=== PATIENT | female | born 1950 | race Caucasian/White ===

== ENCOUNTER 2024-06-24 06:07 | Day surgery (SDC) | payer MEDICARE, OTHER ==
[~2024-06-24] VITALS: Ht 170.2 cm; Wt 103.2 kg
[2024-06-24] VITALS (13 sets, daily range): BP systolic 127–179; BP diastolic 57–86; PULSE 59–71; RESP 13–18; TEMP 97.8; O2SAT 92–96
[2024-06-24] MEDS ORDERED: ceFAZolin 1000mg inj ONE ×3 (06:17→06:38)
[2024-06-24] MEDS ORDERED: midazolam 1 mg/ML 2ml injection ONE ×2 (06:17→08:17)
[2024-06-24] MEDS ORDERED: fentaNYL/PF 50MCG/1 ML 2ML syringe ONE (06:17)
[2024-06-24] MEDS ORDERED: LIDOcaine 1% W/epiNEPHrine 1:100,000 20ml vial ONE ×2 (06:17→07:34)
[2024-06-24] MEDS ORDERED: LETR2.5T7 PO (06:43)
[2024-06-24] MEDS ORDERED: VENL37.589 PO (06:43)
[2024-06-24] MEDS ORDERED: CLON-368 PO (06:43)
[2024-06-24] MEDS ORDERED: CELE-148 PO (06:43)
[2024-06-24] MEDS ORDERED: ALBU18HF2 INH (06:43)
[2024-06-24] MEDS ORDERED: MV-M1TAB19 PO (06:43)
[2024-06-24] MEDS ORDERED: TRIA1TAB3 PO (06:43)
[2024-06-24] MEDS ORDERED: VALA100031 PO (06:43)
[2024-06-24] MEDS ORDERED: clindamycin 600mg/D5W 50ml 0 ML IV ONE (06:47)
[2024-06-24] MEDS ORDERED: vancomycin 1,000mg inj ONE (06:48)
[2024-06-24 07:08] LABS: ALBUMIN 3.8 G/DL (3.4-5.0); ANION GAP 10 (8-16); BLOOD UREA NITROGEN 10 MG/DL (7-18); BUN/CREATININE RATIO 10.1 (10.0-20.0); CHLORIDE 104 MMOL/L (99-107); CREATININE 0.99 MG/DL (0.40-0.90); GLUCOSE 104 MG/DL (70-104); POTASSIUM 3.4 MMOL/L (3.5-5.1); SODIUM 141 MMOL/L (135-145); TOTAL CARBON DIOXIDE 27.3 MMOL/L (24-32); eGFR 55 ML/MIN
[2024-06-24 07:17] LABS: BASOPHILS # (AUTO) 0.1 X10'3 (0-0.2); EOSINOPHILS # (AUTO) 0.5 X10'3 (0-0.9); MONOCYTES # (AUTO) 0.7 X10'3 (0-0.9)
[2024-06-24 07:19] LABS: EOSINOPHILS % (AUTO) 5.3 % (0-6); HEMOGLOBIN 13.9 g/dl (12.0-16.0); LYMPHOCYTES % (AUTO) 23.4 % (21-51); MEAN CORPUSCULAR HEMOGLOBIN 29.7 PG (27.0-31.0); MEAN CORPUSCULAR HGB CONC 33.9 g/dL (33.0-36.5); MEAN CORPUSCULAR VOLUME 87.5 FL (78-98); MEAN PLATELET VOLUME 10.1 FL (7.4-10.4); MONOCYTES % (AUTO) 8.3 % (2-12); NEUTROPHILS # (AUTO) 5.4 X10'3 (1.8-7.7); PLATELET COUNT 212 X10'3 (140-440); RED BLOOD COUNT 4.69 X10'6 (4.20-5.60); RED CELL DISTRIBUTION WIDTH 15.1 % (11.5-14.5); WHITE BLOOD COUNT 8.7 X10'3 (4.5-11.0)
[2024-06-24] MEDS: clindamycin-Cleocin 900mg/D5W 50 ML IV ONE (07:20)
[2024-06-24] MEDS ORDERED: diphenhydrAMINE 50 mg/ml inj ONE (07:34)
[2024-06-24] MEDS ORDERED: HYDROcodone/acetaminophen 10/325mg tab PO PRN (09:10)
[2024-06-24] MEDS ORDERED: HYDROcodone/acetaminophen 5mg/325mg tablet PO PRN (09:10)
[2024-06-24] MEDS: potassium Cl 20 mEq SR tablet PO STA (10:24)
[2024-06-24] MEDS: normal saline 1000ml 1,000 ML IV ONE (10:25)
[2024-06-24] MEDS ORDERED: CLIN300C54 PO (10:48)
[2024-06-24] MEDS: vancomycin/NS 1 GM ADD-VANTAGE 250 ML X 1 DOSE IV ONE (10:59)
== END 2024-06-24 13:55 | disposition home or self-care (01) ==
LOC: SSTAY O 06:07
PROVIDERS: ATTEND Internal Medicine Cardiovascular Disease
DX: I49.5 Sick sinus syndrome (principal); R94.31 Abnormal electrocardiogram [ECG] [EKG]; I12.9 Hypertensive chronic kidney disease with stage 1 through stage 4 chronic kidney disease, or unspecified chronic kidney disease; N18.30 Chronic kidney disease, stage 3 unspecified; E78.5 Hyperlipidemia, unspecified; E66.9 Obesity, unspecified; G47.33 Obstructive sleep apnea (adult) (pediatric); J44.9 Chronic obstructive pulmonary disease, unspecified; F51.01 Primary insomnia; M19.90 Unspecified osteoarthritis, unspecified site; Z87.891 Personal history of nicotine dependence; Z85.3 Personal history of malignant neoplasm of breast; Z79.899 Other long term (current) drug therapy; Z90.49 Acquired absence of other specified parts of digestive tract; Z96.653 Presence of artificial knee joint, bilateral; Z98.890 Other specified postprocedural states; Z68.37 Body mass index [BMI] 37.0-37.9, adult
CPT/HCPCS: 33208; 71046; 80048; 85025; 93005; 99152; 99153; C1785; C1898; J0690; J1200; J2250; J3010; J3370; J3490; J7030; Z7610

== ENCOUNTER 2025-01-20 11:05 | Day surgery (SDC) | payer MEDICARE, OTHER ==
[2025-01-20] VITALS (11 sets, daily range): BP systolic 152–190; BP diastolic 76–126; PULSE 60–74; RESP 16; TEMP 97.5; O2SAT 90–96
[~2025-01-20] VITALS: Ht 170.2 cm; Wt 105.0 kg
[~2025-01-20 11:05] MED LIST: ALBU18HF2 INH; CELE-148 PO; CLON-368 PO; LETR2.5T7 PO; MV-M1TAB19 PO; TRIA1TAB3 PO; VALA100031 PO; VENL37.589 PO
--- NOTE | 2025-01-20 11:15 | ELECTROCARDIOGRAPH REPORT ---
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 Ronnie Cook Measurements Intervals [place] Rate: 66 P: 0 MS: 155 QRS: -3 QRSD: 95 T: 26 QT: 404 QTc: 424 Interpretive Statements Atrial-paced rhythm Low voltage, precordial leads Electronically Signed On 01-21-2025 9:45:[address] Ronnie Cook Please click the below link to view image of tracing.
[2025-01-20] MEDS ORDERED: fentaNYL/PF 50MCG/1 ML 2ML syringe ONE (11:26)
[2025-01-20] MEDS ORDERED: iohexol 350 MG/ML 50ML vial IV ONE (11:26)
[2025-01-20] MEDS ORDERED: midazolam 1 mg/ML 2ml injection ONE (11:26)
[2025-01-20 11:39] LABS: BASOPHILS # (AUTO) 0.1 X10'3 (0-0.2); BASOPHILS % (AUTO) 0.7 % (0-1); EOSINOPHILS # (AUTO) 0.5 X10'3 (0-0.9); EOSINOPHILS % (AUTO) 5.5 % (0-6); HEMATOCRIT 38.3 % (35.0-45.0); LYMPHOCYTES # (AUTO) 2.1 X10'3 (1.1-4.8); LYMPHOCYTES % (AUTO) 21.1 % (21-51); MEAN CORPUSCULAR HEMOGLOBIN 28.7 PG (27.0-31.0); MEAN CORPUSCULAR HGB CONC 33.9 g/dL (33.0-36.5); MEAN CORPUSCULAR VOLUME 84.6 FL (78-98); MEAN PLATELET VOLUME 9.7 FL (7.4-10.4); MONOCYTES # (AUTO) 0.8 X10'3 (0-0.9); MONOCYTES % (AUTO) 8.1 % (2-12); NEUTROPHILS # (AUTO) 6.3 X10'3 (1.8-7.7); NEUTROPHILS % (AUTO) 64.6 % (42-75); PLATELET COUNT 238 X10'3 (140-440); RED BLOOD COUNT 4.53 X10'6 (4.20-5.60); RED CELL DISTRIBUTION WIDTH 14.5 % (11.5-14.5); WHITE BLOOD COUNT 9.8 X10'3 (4.5-11.0)
[2025-01-20] MEDS ORDERED: vancomycin 1,000mg inj ONE (11:43)
[2025-01-20 11:45] LABS: ALBUMIN 3.8 G/DL (3.4-5.0); ANION GAP 5 (8-16); BLOOD UREA NITROGEN 15 MG/DL (7-18); BUN/CREATININE RATIO 16.7 (10.0-20.0); CALCIUM 9.4 MG/DL (8.5-10.1); CHLORIDE 107 MMOL/L (99-107); GLUCOSE 103 MG/DL (70-104); POTASSIUM 3.6 MMOL/L (3.5-5.1); SODIUM 141 MMOL/L (135-145); TOTAL CARBON DIOXIDE 29.3 MMOL/L (24-32); eCRCL 55 ML/MIN; eGFR 62 ML/MIN
[2025-01-20] MEDS ORDERED: clindamycin-Cleocin 900mg/D5W 50 ML IV ONE (11:45)
[2025-01-20 11:48] LABS: APTT 26 SECONDS (22-32); PROTHROMBIN TIME 10.3 SECONDS (9.0-12.0)
[2025-01-20] MEDS ORDERED: RIVA20TA PO (11:54)
[2025-01-20] MEDS ORDERED: AMLO5TAB16 PO (11:54)
[2025-01-20] MEDS ORDERED: LIDOcaine 1% W/epiNEPHrine 1:100,000 20ml vial ONE (13:35)
[2025-01-20] MEDS ORDERED: diphenhydrAMINE 50 mg/ml inj ONE (13:43)
[2025-01-20] MEDS ORDERED: HYDROcodone/acetaminophen 5mg/325mg tablet PO PRN (16:05)
[2025-01-20] MEDS ORDERED: HYDROcodone/acetaminophen 10/325mg tab PO PRN (16:05)
[2025-01-20] MEDS ORDERED: CLIN-143 PO (16:13)
[2025-01-20] MEDS: vancomycin/NS 1 GM ADD-VANTAGE 250 ML IV ONE (17:15)
[2025-01-20] MEDS: normal saline 1000ml 1,000 ML IV SCH (17:15)
[2025-01-20] MEDS: hydrALAZINE 20mg/ml inj. IV PRN (17:17)
[2025-01-20] MEDS: triamterene/HCTZ 37.5/25mg tablet PO ONE (18:30)
[2025-01-20] MEDS: amLODIPine 5mg tablet PO ONE (18:41)
--- NOTE | 2025-01-20 18:50 | RADIOLOGY REPORT ---
DI CHEST,TWO VIEWS CLINICAL HISTORY: S/P PACEMAKER COMPARISON: DI CHEST,TWO VIEWS on DOS: 06/24/24 TECHNIQUE: Frontal and lateral view of the chest was obtained FINDINGS: Lines and Tubes: None. Redemonstration of left-sided dual lead pacemaker terminating within the right atrium and right ventricle with slight more horizontal position of the generator. There is adjacent left mid lung zone skin ale. Lungs: No focal consolidation. Pleura: No effusion. No pneumothorax. Cardiomediastinal contours:Heart size is within normal limits with mild atherosclerotic calcification and uncoiling of the aorta. Bones: No acute osseous abnormality. Surgical clips are noted over the right axillary region. IMPRESSION: No acute cardiopulmonary disease. No pneumothorax. Left-sided pacemaker is noted with the leads terminating within the right atrium and right ventricle.
--- NOTE | 2025-01-21 01:48 | CARDIOLOGY REPORT ---
DATE OF SERVICE: 01/20/2025 DICTATING PHYSICIAN: ANDRE Jean MD PERMANENT PACEMAKER IMPLANTATION LEAD REVISION REPORT GENDER: Female. AGE: 74. HEIGHT: 176. WEIGHT: 105 kg. BODY SURFACE AREA: 2.15 meter squared. INDICATIONS: The patient is a 74-year-old postmenopausal female who had a pacemaker implantation on 06/24/2024. Her pacemaker check on 01/07/2025 shows suddenly change in the RA, RV threshold. Subsequent chest x-ray revealed displaced in the RV and RA leads. After discussing the risks, benefits and alternative options, the patient is undergoing pacemaker reposition. Risks, benefits and alternative options discussed. Informed consent obtained. PREPROCEDURE DIAGNOSES: * RA and RV needle displacement. 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 PROCEDURES DONE: * Fluoroscopy. * Atrial and ventricular lead repositioning. * Conscious sedation of 105 minutes. PRIMARY SLICING MACHINE TENDER: ANDRE Jean MD PRIMARY PC MAINTENANCE TECHNICIAN: Dr. Vijaya hooper MD COMPLICATIONS: None. BLOOD LOSS: Less than 5 mL. DESCRIPTION OF PROCEDURE: Left infraclavicular area was prepped and draped in the usual fashion. The procedure was carried out with local anesthesia and conscious sedation. the prior incision site using electrocautery and the pacemaker pocket was opened. The pacemaker was found to have multiple twists and twirls. After disconnecting the leads from the pocket, it has to be un-winded about 10 times to straighten the leads. Subsequently, the suture sleeves were cut. First, the right ventricular lead was repositioned and it was brought back to the right atrium with the curved stylet, was taken back into the RV. This time, this was positioned up into the septum, pulled into the septum. Appropriate pacing and sensing threshold were obtained. Lead removed by peel-away technique. After this, atrial lead was advanced to the right atrium and J-wire was formed, screwed into right atrial appendage. Appropriate pacing and sensing thresholds obtained. Sheath removed by peel-away technique and this time, the pocket irrigated with copious antibiotic solution. Leads connected to the appropriate sockets of pulse generator. Set screws were tightened and was used. Pacemaker was suspended in the pacemaker pocket. It was anchored with extra sutures at this time, so that the pacemaker was not mobile. The pacemaker pocket closed with continuous 0 Vicryl, followed by interrupted 0 Vicryl, third layer of interrupted 2-0 Vicryl applied. Skin approximated with ale. Pressure dressing applied The patient tolerated the procedure. TECHNICAL INFORMATION: The same Medtronic Trena MRI compatible device. Same device was used. Model # [id number], serial #[id number], Medtronic 06/24/2024, left pectoral location. RIGHT ATRIAL LEAD: Model #4076, 52 cm long, same lead was used. Serial #[id number], [employer]onic, 06/24/2024, right atrial appendage, P-wave amplitude 0.8 mV, 418 ohms of impedance, pacing threshold of 0.5 and 0.4 msec. RV LEAD: Same lead was used, 5076, 58 cm long, serial #[id number], [employer]tronic, 06/24/2024, RV apex, RV amplitude 6.5 mV, 460 ohms impedance, pacing threshold at 0.5 volts at 0.5 milliseconds. 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 Both atrial ventricular Leads were repositioned, well anchored again. Leads connected to the generator. The device was well anchored to the pocket and then tyrex pouches were used and then the pocket closed and the patient was educated about this finding and was told to avoid as well and the family was educated as well. ANDRE Jean MD TID: [id number] RECEIPT: [id number] HOLDEN/MARLENE/AMA cc: Dr. Vijaya hooper MD [facility]
== END 2025-01-20 19:30 | disposition home or self-care (01) ==
LOC: SSTAY O 11:05
PROVIDERS: ATTEND Internal Medicine Cardiovascular Disease
DX: T82.120A Displacement of cardiac electrode, initial encounter (principal); T82.198A Other mechanical complication of other cardiac electronic device, initial encounter; I49.5 Sick sinus syndrome; E78.5 Hyperlipidemia, unspecified; J44.9 Chronic obstructive pulmonary disease, unspecified; N18.9 Chronic kidney disease, unspecified; G47.39 Other sleep apnea; Z98.890 Other specified postprocedural states; Z79.899 Other long term (current) drug therapy; Y83.8 Other surgical procedures as the cause of abnormal reaction of the patient, or of later complication, without mention of misadventure at the time of the procedure; G47.33 Obstructive sleep apnea (adult) (pediatric); I12.9 Hypertensive chronic kidney disease with stage 1 through stage 4 chronic kidney disease, or unspecified chronic kidney disease; Z90.49 Acquired absence of other specified parts of digestive tract; Z96.653 Presence of artificial knee joint, bilateral; Z88.0 Allergy status to penicillin; Z88.2 Allergy status to sulfonamides; Z88.8 Allergy status to other drugs, medicaments and biological substances; Z85.3 Personal history of malignant neoplasm of breast
CPT/HCPCS: 33215; 36415; 71046; 80048; 85025; 85610; 85730; 93005; 99152; 99153; A4565; A6402; J0360; J1200; J2250; J3010; J3370; J3490; J7030; Q9967; Z7610; A6449